=== PATIENT | male | born 1965 | race Native Hawaiian/Other Pacific Islander ===

== ENCOUNTER 2017-02-04 06:20 | Outpatient (CLI) | payer OTHER | END 2017-02-04 06:24 | disposition short-term general hospital (02) | LOC: AMB 06:20 | DX: S01.411A Laceration without foreign body of right cheek and temporomandibular area, initial encounter (principal); S60.512A Abrasion of left hand, initial encounter; R51 Headache; W20.8XXA Other cause of strike by thrown, projected or falling object, initial encounter; Y92.096 Garden or yard of other non-institutional residence as the place of occurrence of the external cause | CPT/HCPCS: A0425; A0427 ==

== ENCOUNTER 2017-02-04 06:27 | Emergency (ER) | payer OTHER ==
[~2017-02-04] VITALS: Ht 185.4 cm; Wt 79.4 kg
[2017-02-04 06:35] VITALS: BP 117/73; TEMP 98.6
[2017-02-04 07:24] LABS: PLATELET COUNT 303 K/uL (142-355)
[2017-02-04 07:31] LABS: POTASSIUM 3.1 mmol/L (3.6-5.2); SODIUM 137 mmol/L (136-145)
[2017-02-04 07:45] LABS: PARTIAL THROMBOPLASTIN TIME 26.5 SECONDS (24.5-33.6)
== END 2017-02-04 09:14 | disposition home or self-care (01) ==
LOC: ED 06:27
PROVIDERS: Emergency Medicine
DX: S00.83XA Contusion of other part of head, initial encounter (principal); Y04.2XXA Assault by strike against or bumped into by another person, initial encounter; Y93.89 Activity, other specified; Y92.89 Other specified places as the place of occurrence of the external cause; Y99.8 Other external cause status; S00.211A Abrasion of right eyelid and periocular area, initial encounter
CPT/HCPCS: 36415; 80053; 80307; 81000; 82550; 84484; 85027; 85610; 85730; 90471; 90715; 96372; 99283; G0479; J0696

== ENCOUNTER 2018-09-24 17:53 | Emergency (ER) | payer OTHER ==
[~2018-09-24] VITALS: Ht 185.4 cm; Wt 77.1 kg
[2018-09-24 18:35] VITALS: TEMP 97.9
[2018-09-24 19:26] LABS: PLATELET COUNT 349 K/uL (142-355)
[2018-09-24 19:35] LABS: POTASSIUM 4.4 mmol/L (3.6-5.2); SODIUM 141 mmol/L (136-145)
[2018-09-24 19:47] LABS: PARTIAL THROMBOPLASTIN TIME 24.3 SECONDS (24.5-33.6)
[2018-09-24 20:33] VITALS: BP 117/88
== END 2018-09-24 20:33 | disposition home or self-care (01) ==
LOC: ED 17:53
PROVIDERS: Hospitalist
DX: R07.89 Other chest pain (principal); R56.9 Unspecified convulsions; M54.2 Cervicalgia; Z98.890 Other specified postprocedural states; W18.39XA Other fall on same level, initial encounter; Y92.89 Other specified places as the place of occurrence of the external cause
CPT/HCPCS: 36415; 80053; 82550; 83880; 84484; 85027; 85610; 85730; 93005; 96374; 96375; 99284; J1885; J2270; J2405

== ENCOUNTER 2019-03-23 16:26 | Emergency (ER) | payer OTHER ==
[~2019-03-23] VITALS: Ht 185.4 cm; Wt 74.8 kg
[2019-03-23 16:40] VITALS: TEMP 98.6
[2019-03-23 18:27] VITALS: BP 133/85
== END 2019-03-23 18:27 | disposition home or self-care (01) ==
LOC: ED 16:26
DX: K02.9 Dental caries, unspecified (principal); K04.7 Periapical abscess without sinus
CPT/HCPCS: 96372; 99283; J1885

== ENCOUNTER 2019-04-02 00:53 | Emergency (ER) | payer OTHER ==
[~2019-04-02] VITALS: Ht 185.4 cm; Wt 74.8 kg
[2019-04-02 01:36] VITALS: BP 104/61; TEMP 97.3
== END 2019-04-02 01:36 | disposition home or self-care (01) ==
LOC: ED 00:53
DX: K08.89 Other specified disorders of teeth and supporting structures (principal); K04.7 Periapical abscess without sinus; F17.210 Nicotine dependence, cigarettes, uncomplicated
CPT/HCPCS: 99282

== ENCOUNTER 2019-07-06 11:28 | Emergency (ER) | payer OTHER ==
[~2019-07-06] VITALS: Ht 185.4 cm; Wt 74.8 kg
[2019-07-06 12:00] VITALS: BP 139/83; TEMP 98.1
== END 2019-07-06 13:44 | disposition home or self-care (01) ==
LOC: ED 11:28
DX: T81.89XA Other complications of procedures, not elsewhere classified, initial encounter (principal); Y83.8 Other surgical procedures as the cause of abnormal reaction of the patient, or of later complication, without mention of misadventure at the time of the procedure; Y82.8 Other medical devices associated with adverse incidents
CPT/HCPCS: 99282

== ENCOUNTER 2021-01-17 16:10 | Emergency (ER) | payer OTHER ==
[~2021-01-17] VITALS: Ht 185.4 cm; Wt 68.0 kg
[2021-01-17 16:18] VITALS: BP 118/73; TEMP 98.5
== END 2021-01-17 18:24 | disposition home or self-care (01) ==
LOC: ED 16:10
DX: S43.101A Unspecified dislocation of right acromioclavicular joint, initial encounter (principal); S86.812A Strain of other muscle(s) and tendon(s) at lower leg level, left leg, initial encounter; W17.89XA Other fall from one level to another, initial encounter; Y93.55 Activity, bike riding; Y92.89 Other specified places as the place of occurrence of the external cause
CPT/HCPCS: 99283

== ENCOUNTER 2021-03-27 07:10 | Emergency (ER) | payer OTHER ==
[~2021-03-27] VITALS: Ht 185.4 cm; Wt 77.1 kg
[2021-03-27 07:49] LABS: PLATELET COUNT 325 K/uL (142-355)
[2021-03-27 08:02] LABS: POTASSIUM 3.4 mmol/L (3.6-5.2)
[2021-03-27 11:07] VITALS: BP 121/69; TEMP 97.8
== END 2021-03-27 11:07 | disposition home or self-care (01) ==
LOC: ED 07:10
PROVIDERS: Emergency Medicine
DX: R07.89 Other chest pain (principal); J44.9 Chronic obstructive pulmonary disease, unspecified; J18.9 Pneumonia, unspecified organism; F17.210 Nicotine dependence, cigarettes, uncomplicated
CPT/HCPCS: 36415; 80053; 83690; 84484; 85027; 93005; 96360; 96365; 96375; 99284; J0696; J1885; J2270; J2405; J2930; Q9963

== ENCOUNTER 2022-01-01 16:27 | Emergency (ER) | payer OTHER ==
[~2022-01-01] VITALS: Ht 185.4 cm; Wt 68.0 kg
[2022-01-01 16:42] VITALS: TEMP 97.6
[2022-01-01 18:18] VITALS: BP 106/70
== END 2022-01-01 18:19 | disposition home or self-care (01) ==
LOC: ED 16:27
DX: K04.7 Periapical abscess without sinus (principal); K02.9 Dental caries, unspecified
CPT/HCPCS: 96372; 99283; J0696; J1885; J2001; J2175; J2405

== ENCOUNTER 2022-05-09 14:30 | Emergency (ER) | payer OTHER ==
[~2022-05-09] VITALS: Ht 185.4 cm; Wt 72.6 kg
[2022-05-09 14:44] VITALS: BP 120/66; TEMP 99.8
== END 2022-05-09 16:09 | disposition home or self-care (01) ==
LOC: ED 14:30
DX: M54.2 Cervicalgia (principal); G89.29 Other chronic pain; M62.838 Other muscle spasm
CPT/HCPCS: 96372; 99282; J1885

== ENCOUNTER 2022-05-12 04:26 | Emergency (ER) | payer OTHER ==
[~2022-05-12] VITALS: Ht 185.4 cm; Wt 72.6 kg
[2022-05-12 06:47] VITALS: BP 143/84; TEMP 99.9
== END 2022-05-12 07:05 | disposition home or self-care (01) ==
LOC: ED 04:26
DX: M54.2 Cervicalgia (principal); G89.29 Other chronic pain; M54.89 Other dorsalgia; F41.8 Other specified anxiety disorders
CPT/HCPCS: 80307; 96372; 99283; J1200; J2175; J2360; J2405